=== PATIENT | male | born 1950 | race Hispanic/Latino ===

== ENCOUNTER 2019-01-14 09:57 | Emergency (ER) | payer MEDICARE, OTHER ==
[2019-01-14 10:55] LABS: BASOPHILS % (AUTO) 2.7 % (0.0-5.0); HEMATOCRIT 36.4 % (42-54); MEAN CORPUSCULAR HEMOGLOBIN 28.3 pg (27.0-33.0); MEAN CORPUSCULAR HGB CONC 33.4 g/dL (32.0-36.0); MEAN CORPUSCULAR VOLUME 84.8 fL (79-99); MONOCYTES % (AUTO) 5.7 % (3.0-13.0); NEUTROPHILS % (AUTO) 69.6 % (40.0-77.0); NUCLEATED RED BLOOD CELLS 0.1 % (0.0-0.19); PLATELET COUNT (AUTO) 132 K/uL (130-400); RED CELL DISTRIBUTION WIDTH 13.8 % (11.0-15.5)
[2019-01-14 11:02] LABS: APPEARANCE,URINE Clear (CLEAR); BILIRUBIN,URINE Negative (NEGATIVE); COLOR,URINE Yellow (YELLOW); GLUCOSE, URINE (UA) TRACE mg/dL (NEGATIVE); KETONES,URINE Negative (NEGATIVE); LEUKOCYTE ESTERASE ,URINE Negative (NEGATIVE); NITRATE,URINE Negative (NEGATIVE); OCCULT BLOOD,URINE Negative (NEGATIVE); PH,URINE 6.5 (5.0-8.0); PROTEIN,URINE Negative (NEGATIVE)
[2019-01-14 11:11] LABS: CREATININE 1.1 mg/dL (0.5-1.5); POTASSIUM 4.3 mmol/L (3.5-5.1)
[2019-01-14 11:17] LABS: BACTERIA,URINE None Seen /HPF (None Seen); RBC,URINE None Seen /HPF (0-1); SQUAMOUS EPITHELIAL CELL,UR Rare /HPF (0-2); WBC,URINE None Seen /HPF (0-1)
[2019-01-14 11:19] LABS: ALBUMIN 4.2 g/dL (3.5-5.0); TOTAL PROTEIN, SERUM 7.3 g/dL (6.0-8.3)
[2019-01-14 12:03] LABS: ERYTHROCYTE SEDIMENTATION RATE 4 MM/HR (0-20)
== END 2019-01-14 13:42 | disposition home or self-care (01) ==
LOC: EDH 09:57
DX: M51.36 Other intervertebral disc degeneration, lumbar region (principal); E11.9 Type 2 diabetes mellitus without complications
CPT/HCPCS: 36415; 72131; 80053; 81001; 85025; 85651

== ENCOUNTER → 2019-02-14 | Outpatient (CLI) | payer MEDICARE ==
[~2019-02-14] MED LIST: ASPI-555 PO; FURO40TA5 PO; GLIP5TAB11 PO; LISI10TA7 PO; METF-444 PO; METO25TA6 PO; POTA-79 PO; SIMV40TA5 PO; SITA100T12 PO; TAMS-1 PO
== END | disposition home or self-care (01) ==
LOC: SHCH 13:29
PROVIDERS: ATTEND Internal Medicine Cardiovascular Disease
DX: R07.9 Chest pain, unspecified (principal); E11.9 Type 2 diabetes mellitus without complications
CPT/HCPCS: 93306

== ENCOUNTER → 2019-02-17 | Outpatient (CLI) | payer MEDICARE ==
[~2019-02-17] VITALS: Ht 160 cm; Wt 76.7 kg
[~2019-02-17] MED LIST changes: -ASPI-555 PO; -FURO40TA5 PO; -GLIP5TAB11 PO; -LISI10TA7 PO; -METF-444 PO; -METO25TA6 PO; -POTA-79 PO; +REGADENOSON 0.4 MG/5 ML PF SYG IVP SCH; -SIMV40TA5 PO; -SITA100T12 PO; -TAMS-1 PO
== END | disposition home or self-care (01) ==
LOC: SHCH 07:50
PROVIDERS: ATTEND Internal Medicine Cardiovascular Disease
DX: I25.89 Other forms of chronic ischemic heart disease (principal)
CPT/HCPCS: 78452; 93017; 96374; A9500 ×2; J2785

== ENCOUNTER 2019-03-12 05:30 | Day surgery (SDC) | payer MEDICARE ==
[2019-03-11 11:47] VITALS: BP 151/63
[2019-03-11 11:54] LABS: BASOPHILS % (AUTO) 1.2 % (0.0-5.0); EOSINOPHILS % (AUTO) 1.4 % (0.0-8.0); HEMATOCRIT 37.9 % (42-54); LYMPHOCYTES % (AUTO) 22.8 % (21.0-51.0); MEAN CORPUSCULAR HEMOGLOBIN 28.2 pg (27.0-33.0); MEAN CORPUSCULAR HGB CONC 33.4 g/dL (32.0-36.0); MEAN CORPUSCULAR VOLUME 84.4 fL (79-99); MONOCYTES % (AUTO) 4.9 % (3.0-13.0); NEUTROPHILS % (AUTO) 69.7 % (40.0-77.0); PLATELET COUNT (AUTO) 149 K/uL (130-400); RED BLOOD CELL COUNT(AUTO) 4.49 MIL/uL (4.50-6.20); RED CELL DISTRIBUTION WIDTH 13.4 % (11.0-15.5); WHITE BLOOD COUNT (AUTO) 5.5 K/uL (4.8-10.8)
[2019-03-11 11:55] LABS: APPEARANCE,URINE Clear (CLEAR); BILIRUBIN,URINE Negative (NEGATIVE); COLOR,URINE Yellow (YELLOW); GLUCOSE, URINE (UA) >=1000 mg/dL (NEGATIVE); KETONES,URINE Negative (NEGATIVE); LEUKOCYTE ESTERASE ,URINE Negative (NEGATIVE); NITRATE,URINE Negative (NEGATIVE); OCCULT BLOOD,URINE Negative (NEGATIVE); PROTEIN,URINE Negative (NEGATIVE)
[2019-03-11 12:01] LABS: CREATININE 1.1 mg/dL (0.5-1.5); POTASSIUM 4.6 mmol/L (3.5-5.1)
[2019-03-11 12:06] LABS: INR 0.95 (0.85-1.15)
[2019-03-11 12:07] LABS: BACTERIA,URINE Rare /HPF (None Seen); MUCUS,URINE Rare LPF (None Seen); RBC,URINE None Seen /HPF (0-1); SQUAMOUS EPITHELIAL CELL,UR 0-2 /HPF (0-2); WBC,URINE None Seen /HPF (0-1)
[~2019-03-12] VITALS: Ht 162.6 cm; Wt 74.8 kg
[2019-03-12] VITALS (14 sets, daily range): BP systolic 110–140; BP diastolic 40–63
[~2019-03-12 05:30] MED LIST changes: +ASPI-555 PO; +GLIP5TAB11 PO; +LISI10TA7 PO; +METF-444 PO; -REGADENOSON 0.4 MG/5 ML PF SYG IVP SCH; +SIMV40TA5 PO; +SODIUM CHLORIDE 0.9% 500ML 500 ML IV SCH
[2019-03-12] MEDS ORDERED: SODIUM CHLORIDE 0.9% 1000ML 1,000 ML IV ONE (06:11)
[2019-03-12] MEDS ORDERED: SITA100T12 PO (06:53)
[2019-03-12] MEDS ORDERED: TAMS-1 PO (06:53)
[2019-03-12] MEDS ORDERED: IOHEXOL-350 50ML VIAL IV ONE (07:14)
[2019-03-12] MEDS ORDERED: IOHEXOL 350 MG/ML 100ML INFUS..BTL IV ONE ×2 (07:14→07:55)
[2019-03-12] MEDS ORDERED: HEPARIN SODIUM 1000UNIT/ML 10ML VIAL ONE (07:14)
[2019-03-12] MEDS ORDERED: LIDOCAINE HCL 2% 20ML ONE (07:14)
[2019-03-12] MEDS ORDERED: GLUCAGON 1MG KIT 1 MG ML IM PRN (08:30)
[2019-03-12] MEDS ORDERED: DEXTROSE 50%-WATER 50 ML DISP.SYRIN IV PRN (08:30)
--- NOTE | 2019-03-12 09:45 | NUR ---
DIET PT TOLERATED DIET WELL, ASSISTED PT.
--- NOTE | 2019-03-12 10:00 | NUR ---
METFORMIN PER DR. DAVIES, HOLD METFORMIN TODAY.
[2019-03-12] MEDS ORDERED: INSULIN HUMULIN R 100 UNIT/ML 3ML SQ SCH (11:30)
--- NOTE | 2019-03-12 13:15 | NUR ---
DIET PT TOLERATING DIET WELL. PCP ASSISTING PT.
--- NOTE | 2019-03-12 15:00 | NUR ---
TEACH DISCHARGE INSTRUCTIONS GIVEN TO AND PT. INSTRUCTIONS FOR FOLLOW UP APPT WITH DR. MOSS ALSO GIVEN TO . DEMONSTRATED TO ON HOW TO MONITOR CATH SITE FOR BLEEDING/HEMATOMA, APPLY DIRECT PRESSURE, CALL 911. VERBALIZED UNDERSTANDING.
--- NOTE | 2019-03-12 15:25 | NUR ---
REPORT REPORT RECEIVED BY KARLA HERNANDEZ. PT LYING IN BED. DOING WELL. NO PROBLEMS. SITE TO RIGHT GROIN SOFT TO TOUCH. NO BLEEDING, OOZING NOTED TO SITE.
== END 2019-03-12 17:10 | disposition home or self-care (01) ==
LOC: DAH 05:30
PROVIDERS: ATTEND Internal Medicine Cardiovascular Disease
DX: I25.118 Atherosclerotic heart disease of native coronary artery with other forms of angina pectoris (principal); E11.9 Type 2 diabetes mellitus without complications; E78.00 Pure hypercholesterolemia, unspecified; I11.9 Hypertensive heart disease without heart failure; Z82.49 Family history of ischemic heart disease and other diseases of the circulatory system; Z79.899 Other long term (current) drug therapy; Z98.890 Other specified postprocedural states; Z79.01 Long term (current) use of anticoagulants
CPT/HCPCS: 36415; 71045; 80048; 81001; 82948 ×2; 85025; 85610; 85730; 93005; 93460; A4606; C1769 ×2; C1894 ×2; J1644 ×2; J3490; J7030; Q9965 ×2; Q9967 ×3

== ENCOUNTER 2019-04-07 07:31 | Inpatient (IN) | payer MEDICARE | END 2019-04-12 17:55 | disposition home or self-care (01) | LOC: DAHIP 07:31 → 2CH 04-08 05:20 → 2CV 16:29 → 2DH 04-10 12:30 | PROC: 02RF08Z Replacement of Aortic Valve with Zooplastic Tissue, Open Approach (ICD-10-PCS; principal; 2019-04-07 13:06) | PROC: 5A1221Z Performance of Cardiac Output, Continuous (ICD-10-PCS; 2019-04-07 13:06) | DX: I35.0 Nonrheumatic aortic (valve) stenosis (principal); Q23.1 Congenital insufficiency of aortic valve; I25.10 Atherosclerotic heart disease of native coronary artery without angina pectoris; D69.6 Thrombocytopenia, unspecified ==

== ENCOUNTER 2019-04-16 11:25 | Emergency (ER) | payer MEDICARE ==
[~2019-04-16 11:25] MED LIST changes: +FURO40TA5 PO; -LISI10TA7 PO; +METO25TA6 PO; +POTA-79 PO; +SITA100T12 PO; -SODIUM CHLORIDE 0.9% 500ML 500 ML IV SCH; +TAMS-1 PO
[2019-04-16 11:50] LABS: EOSINOPHILS % (AUTO) 1.5 % (0.0-8.0); HEMATOCRIT 32.9 % (42-54); LYMPHOCYTES % (AUTO) 10.1 % (21.0-51.0); MEAN CORPUSCULAR HEMOGLOBIN 28.6 pg (27.0-33.0); MEAN CORPUSCULAR HGB CONC 33.9 g/dL (32.0-36.0); MEAN CORPUSCULAR VOLUME 84.5 fL (79-99); MONOCYTES % (AUTO) 7.8 % (3.0-13.0); NEUTROPHILS % (AUTO) 79.6 % (40.0-77.0); NUCLEATED RED BLOOD CELLS 0.1 % (0.0-0.19); PLATELET COUNT (AUTO) 141 K/uL (130-400); RED BLOOD CELL COUNT(AUTO) 3.89 MIL/uL (4.50-6.20); RED CELL DISTRIBUTION WIDTH 13.6 % (11.0-15.5); WHITE BLOOD COUNT (AUTO) 6.9 K/uL (4.8-10.8)
[2019-04-16 11:54] LABS: CREATININE 1.1 mg/dL (0.5-1.5); INR 0.97 (0.85-1.15); POTASSIUM 4.1 mmol/L (3.5-5.1); PROTHROMBIN TIME 10.2 SEC (9.6-11.6)
[2019-04-16 12:08] LABS: ALBUMIN 2.8 g/dL (3.5-5.0); BILIRUBIN,TOTAL 1.5 mg/dL (0.2-1.0); TOTAL PROTEIN, SERUM 7.1 g/dL (6.0-8.3)
[2019-04-16] MEDS ORDERED: FUROSEMIDE 10 MG/ML 4ML VIAL ONE (14:17)
[2019-04-16] MEDS ORDERED: KETOROLAC TROMETHAMINE 15MG/ML ONE (14:26)
== END 2019-04-16 15:02 | disposition home or self-care (01) ==
LOC: EDH 11:25
DX: T81.89XA Other complications of procedures, not elsewhere classified, initial encounter (principal); R07.89 Other chest pain; J90 Pleural effusion, not elsewhere classified; E11.9 Type 2 diabetes mellitus without complications; I10 Essential (primary) hypertension; Z95.2 Presence of prosthetic heart valve; Y83.8 Other surgical procedures as the cause of abnormal reaction of the patient, or of later complication, without mention of misadventure at the time of the procedure; Y92.89 Other specified places as the place of occurrence of the external cause
CPT/HCPCS: 36415; 71045; 80053; 82550; 84484; 85025; 85610; 85730; 93005; 96374; 96375; 99285; J1885; J1940

== ENCOUNTER → 2019-05-07 | Outpatient (CLI) | payer MEDICARE | END | disposition home or self-care (01) | LOC: RAH 12:30 | PROVIDERS: ATTEND Internal Medicine Cardiovascular Disease | DX: I72.4 Aneurysm of artery of lower extremity (principal) | CPT/HCPCS: 76882 ==

== ENCOUNTER → 2019-10-16 | Outpatient (CLI) | payer OTHER, MEDICARE ==
[~2019-10-16] MED LIST changes: +SIMV-46 PO; -SIMV40TA5 PO
== END | disposition home or self-care (01) ==
LOC: SHCH 15:23
PROVIDERS: ATTEND Internal Medicine Cardiovascular Disease
DX: R06.00 Dyspnea, unspecified (principal)
CPT/HCPCS: 93306; 93356

== ENCOUNTER → 2019-10-21 | Outpatient (CLI) | payer OTHER, MEDICARE ==
[~2019-10-21] VITALS: Ht 160 cm; Wt 75.7 kg
[~2019-10-21] MED LIST changes: +REGADENOSON 0.4 MG/5 ML PF SYG IVP SCH
== END | disposition home or self-care (01) ==
LOC: SHCH 08:25
PROVIDERS: ATTEND Internal Medicine Cardiovascular Disease
DX: I25.119 Atherosclerotic heart disease of native coronary artery with unspecified angina pectoris (principal)
CPT/HCPCS: 78452; 93017; 96374; A9500 ×2; J2785

== ENCOUNTER → 2019-11-17 | Outpatient (CLI) | payer OTHER, MEDICARE ==
[~2019-11-17] VITALS: Ht 161.3 cm; Wt 76.4 kg
[~2019-11-17] MED LIST changes: +NITR0.4T50 SL; -REGADENOSON 0.4 MG/5 ML PF SYG IVP SCH; +SERT50TA12 PO; +SODIUM CHLORIDE 0.9% 500ML 500 ML IV SCH
[2019-11-17 09:32] LABS: BASOPHILS % (AUTO) 1.1 % (0.0-5.0); EOSINOPHILS % (AUTO) 2.5 % (0.0-8.0); HEMATOCRIT 38.3 % (42-54); LYMPHOCYTES % (AUTO) 26.2 % (21.0-51.0); MEAN CORPUSCULAR HEMOGLOBIN 26.6 pg (27.0-33.0); MEAN CORPUSCULAR HGB CONC 31.9 g/dL (32.0-36.0); MEAN CORPUSCULAR VOLUME 83.6 fL (79-99); MONOCYTES % (AUTO) 5.4 % (3.0-13.0); NEUTROPHILS % (AUTO) 64.3 % (40.0-77.0); PLATELET COUNT (AUTO) 139 K/uL (130-400); RED BLOOD CELL COUNT(AUTO) 4.58 MIL/uL (4.50-6.20); RED CELL DISTRIBUTION WIDTH 13.7 % (11.0-15.5); WHITE BLOOD COUNT (AUTO) 4.4 K/uL (4.8-10.8)
[2019-11-17 09:34] LABS: APPEARANCE,URINE Clear (CLEAR); BILIRUBIN,URINE Negative (NEGATIVE); COLOR,URINE Yellow (YELLOW); GLUCOSE, URINE (UA) >=1000 mg/dL (NEGATIVE); KETONES,URINE Negative (NEGATIVE); LEUKOCYTE ESTERASE ,URINE Negative (NEGATIVE); NITRATE,URINE Negative (NEGATIVE); OCCULT BLOOD,URINE Negative (NEGATIVE); PROTEIN,URINE Negative (NEGATIVE)
[2019-11-17 09:37] LABS: POTASSIUM 4.8 mmol/L (3.5-5.1)
[2019-11-17 09:39] VITALS: BP 155/80
[2019-11-17 09:48] LABS: INR 0.96 (0.85-1.15); PARTIAL THROMBOPLASTIN TIME 26.7 SEC (26.3-35.5); PROTHROMBIN TIME 10.1 SEC (9.6-11.6)
[2019-11-17 09:51] LABS: BACTERIA,URINE Rare /HPF (None Seen); RBC,URINE 0-1 /HPF (0-1); SQUAMOUS EPITHELIAL CELL,UR Rare /HPF (0-2); WBC,URINE 0-1 /HPF (0-1)
--- NOTE | 2019-11-28 13:18 | NUR ---
spoke to Cass[facility] from [facility] and she advised me that new orders for the 12/03/19 procedure was faxed and we do need pt to preop again, advised scheduling.
== END | disposition home or self-care (01) ==
LOC: DAH 10:00 → EDSTATUS 12-01 08:00
PROVIDERS: ATTEND Internal Medicine Cardiovascular Disease
DX: Z01.818 Encounter for other preprocedural examination (principal); I25.10 Atherosclerotic heart disease of native coronary artery without angina pectoris; M47.814 Spondylosis without myelopathy or radiculopathy, thoracic region
CPT/HCPCS: 36415; 71045; 80048; 81001; 85025; 85610; 85730; 93005

== ENCOUNTER 2019-12-03 05:40 | Observation (INO) | payer OTHER, MEDICARE ==
[2019-12-01 10:54] LABS: BASOPHILS % (AUTO) 0.9 % (0.0-5.0); EOSINOPHILS % (AUTO) 2.7 % (0.0-8.0); HEMATOCRIT 38.6 % (42-54); LYMPHOCYTES % (AUTO) 25.7 % (21.0-51.0); MEAN CORPUSCULAR HEMOGLOBIN 26.8 pg (27.0-33.0); MEAN CORPUSCULAR HGB CONC 31.9 g/dL (32.0-36.0); MEAN CORPUSCULAR VOLUME 84.1 fL (79-99); MONOCYTES % (AUTO) 6.6 % (3.0-13.0); NEUTROPHILS % (AUTO) 63.9 % (40.0-77.0); PLATELET COUNT (AUTO) 144 K/uL (130-400); RED BLOOD CELL COUNT(AUTO) 4.59 MIL/uL (4.50-6.20); RED CELL DISTRIBUTION WIDTH 13.2 % (11.0-15.5); WHITE BLOOD COUNT (AUTO) 5.5 K/uL (4.8-10.8)
[2019-12-01 11:07] LABS: CREATININE 1.1 mg/dL (0.5-1.5); POTASSIUM 4.8 mmol/L (3.5-5.1)
[2019-12-01 11:10] LABS: APPEARANCE,URINE Clear (CLEAR); BILIRUBIN,URINE Negative (NEGATIVE); COLOR,URINE Yellow (YELLOW); GLUCOSE, URINE (UA) Negative (NEGATIVE); KETONES,URINE Trace mg/dL (NEGATIVE); LEUKOCYTE ESTERASE ,URINE Negative (NEGATIVE); NITRATE,URINE Negative (NEGATIVE); OCCULT BLOOD,URINE Negative (NEGATIVE); PROTEIN,URINE Negative (NEGATIVE)
[2019-12-01 11:10] LABS: INR 0.96 (0.85-1.15); PARTIAL THROMBOPLASTIN TIME 26.2 SEC (26.3-35.5); PROTHROMBIN TIME 10.4 SEC (9.6-11.6)
[2019-12-01 11:14] VITALS: BP 136/63
[2019-12-01 11:23] LABS: BACTERIA,URINE Rare /HPF (None Seen); RBC,URINE 0-1 /HPF (0-1); SQUAMOUS EPITHELIAL CELL,UR Rare /HPF (0-2); WBC,URINE 0-1 /HPF (0-1)
[2019-12-03] VITALS (11 sets, daily range): BP systolic 118–164; BP diastolic 58–77
[~2019-12-03] VITALS: Ht 162.6 cm; Wt 74.8 kg
[~2019-12-03 05:40] MED LIST changes: -ASPI-555 PO; +ASPI-556 PO; -FURO40TA5 PO
--- NOTE | 2019-12-03 06:10 | NUR ---
PRE OP PT ARRIVED AMBULATORY IN NO DISTRESS WITH AT SIDE. PT MADE COMFORTABLE IN BED, CALL LIGHT WITH IN REACH AND BED IN LOWEST POSITION. PT INSTRUCTED TO CALL FOR ASSISTANCE AND VOICED UNDERSTANDING. Addendum: 12/03/19 at 0800 by FARHAT REIS RN RN PT HAS SCAR TO RT CHEST WALL FROM PREVIOUS PROCEDURE SO HAS LEFT CHEST WALL LARGER THAN RIGHT
[2019-12-03] MEDS ORDERED: SODIUM CHLORIDE 0.9% 1000ML 1,000 ML IV ONE (06:48)
[2019-12-03] MEDS ORDERED: HEPARIN SODIUM 1000UNIT/ML 10ML VIAL ONE (07:09)
[2019-12-03] MEDS ORDERED: IOHEXOL-350 50ML VIAL IV ONE (07:09)
[2019-12-03] MEDS ORDERED: IOHEXOL 350 MG/ML 100ML INFUS..BTL IV ONE (07:09)
[2019-12-03] MEDS ORDERED: LIDOCAINE HCL 2% 20ML ONE (07:10)
--- NOTE | 2019-12-03 07:15 | NUR ---
DRY KILN OPERATOR PT TAKEN TO DRY KILN OPERATOR VIA BED BY SHELLI ACOSTA. PT IN NO DISTRESS.
[2019-12-03] MEDS ORDERED: ATROPINE SULFATE 0.1 MG/ML 10 ML SYG IVP ONE (07:39)
[2019-12-03] MEDS ORDERED: ASPIRIN 81MG TAB.CHEW ONE (08:04)
[2019-12-03] MEDS ORDERED: CLOPIDOGREL BISULFATE 300 MG TAB ONE (08:04)
[2019-12-03] MEDS ORDERED: ONDANSETRON HCL 4 MG/2 ML VIAL IVP PRN (08:15)
[2019-12-03] MEDS ORDERED: MORPHINE SULFATE 5 MG/ML VIAL IVP SCH (08:15)
[2019-12-03] MEDS ORDERED: NITROGLYCERIN 0.4 MG SL TAB SL SCH (08:15)
[2019-12-03] MEDS ORDERED: ONDANSETRON HCL 4 MG/2 ML VIAL IVP SCH (08:15)
[2019-12-03] MEDS ORDERED: DEXTROSE 50%-WATER 50 ML DISP.SYRIN IV PRN (08:15)
--- NOTE | 2019-12-03 08:18 | NUR ---
MD FOLLOW UP DR DAVIES IN TO TALK TO SPOUSE AND INFORMED OF STENT PLACEMENT. PT WILL BE ADMITTED FOR OBSERVATION.
--- NOTE | 2019-12-03 08:49 | NUR ---
ARRIVAL TO FLOOR PT IS AAOX3 DENIES CP DENIES SOB DENIES NV NO COMPLAINTS. ARRIVED WITH 6FR SHEATH TO RIGHT GROIN, SUTURED IN PLACE NO HEMATOMA NO OOZING NOTED. BEDREST IN PROGRESS. TELE PACK PLACED ON PATIENT. CALL LIGHT WITHIN REACH.
--- NOTE | 2019-12-03 08:50 | NUR ---
LEFT GROIN STATUS NOTED ALSO LEFT GROIN LHC ATTEMPTED SITE, DRESSING WITH TEGADERM IN PLACE, MINIMAL SPOTTING NOTED TO LEFT GROIN. BEDREST IN PROGRESS.
[2019-12-03] MEDS: CLOPIDOGREL BISULFATE 75 MG TAB PO SCH (08:59)
[2019-12-03] MEDS: METFORMIN HCL 500 MG TABLET PO SCH ×2 (09:00→20:34)
[2019-12-03] MEDS: POTASSIUM CHLORIDE 20 MEQ ERTAB PO SCH (09:00)
[2019-12-03] MEDS: TAMSULOSIN HCL 0.4 MG CAP.ER.24H PO SCH (09:05)
[2019-12-03] MEDS: METOPROLOL TARTRATE 25 MG TAB PO SCH ×2 (09:05→20:33)
[2019-12-03] MEDS: SERTRALINE HCL 50 MG TABLET PO SCH (09:05)
[2019-12-03] MEDS: INSULIN HUMULIN R 100 UNIT/ML 3ML SQ SCH ×3 (11:30→20:38)
--- NOTE | 2019-12-03 13:00 | NUR ---
DRESSING CHANGED TO LEFT GROIN AREA IS SOFT. BEDREST IN PROGRESS.
--- NOTE | 2019-12-03 13:45 | NUR ---
LINE PULL 6FR SHEATH LINE PULLED FROM RIGHT GROIN, MANUAL PRESSURE HOLD WITH DSTAT IN PLACE X30 MINS, HEMOSTASIS ACHIEVED. BEDREST CONTINUES IN PROGRESS X 8 MORE HRS AND PATIENT VERBALIZES UNDERSTANDING AND STATES HE WILL COMPLY. VS WNL THROUGHOUT. FAMILY IS AT BEDSIDE, CALL LIGHT WITHIN REACH.
[2019-12-03] MEDS ORDERED: ACETAMINOPHEN 325 MG TAB PO PRN (17:00)
--- NOTE | 2019-12-03 17:00 | NUR ---
RIGHT GROIN REMAINS WNL BEDREST IN PROGRESS
[2019-12-03] MEDS ORDERED: ASPIRIN 81 MG EC TAB PO SCH (21:00)
[2019-12-03] MEDS ORDERED: LINAGLIPTIN 5 MG TABLET PO SCH (21:00)
[2019-12-03] MEDS ORDERED: GLIPIZIDE 5 MG TABLET PO SCH (21:00)
[2019-12-03] MEDS ORDERED: SIMVASTATIN 20 MG TABLET PO SCH (21:00)
[2019-12-04 03:25] VITALS: BP 112/59
[2019-12-04 04:52] LABS: HEMATOCRIT 34.5 % (42-54); MEAN CORPUSCULAR HEMOGLOBIN 27.1 pg (27.0-33.0); MEAN CORPUSCULAR VOLUME 82.1 fL (79-99); PLATELET COUNT (AUTO) 119 K/uL (130-400); RED CELL DISTRIBUTION WIDTH 13.1 % (11.0-15.5)
[2019-12-04 05:12] LABS: POTASSIUM 3.9 mmol/L (3.5-5.1)
[2019-12-04] MEDS: INSULIN HUMULIN R 100 UNIT/ML 3ML SQ SCH ×2 (06:14→11:16)
[2019-12-04] MEDS ORDERED: GLIPIZIDE 5 MG TABLET PO SCH (07:30)
--- NOTE | 2019-12-04 07:30 | NUR ---
ASSESSMENT PT IS AAOX3 DENIES CP DENIES SOB DENIES NV NO COMPLAINTS RESTING IN BED. BREATHING PATTERN IS EVEN AND UNLABORED. NO VISIBLE SIGNS OF DISTRESS NOTED, RIGHT GROIN WNL, LEFT GROIN SOFT WELL. CALL LIGHT WITHIN REACH.
[2019-12-04] MEDS: SERTRALINE HCL 50 MG TABLET PO SCH (07:33)
[2019-12-04] MEDS: METFORMIN HCL 500 MG TABLET PO SCH (07:33)
[2019-12-04] MEDS: POTASSIUM CHLORIDE 20 MEQ ERTAB PO SCH (07:33)
[2019-12-04] MEDS: TAMSULOSIN HCL 0.4 MG CAP.ER.24H PO SCH (07:33)
[2019-12-04] MEDS: CLOPIDOGREL BISULFATE 75 MG TAB PO SCH (07:33)
[2019-12-04] MEDS: METOPROLOL TARTRATE 25 MG TAB PO SCH (07:33)
[2019-12-04 07:38] VITALS: BP 137/70
--- NOTE | 2019-12-04 11:15 | NUR ---
DISCHARGE PT REFUSED SQ INSULIN. DC INSTRUCTIONS GIVEN TO PT. PT AGREES TO TAKE MEDS ORDERED, AGREES TO FOLLOW UP WITH DR DAVIES ORDERED. ALL QUESTIONS ANSWERED, PIV REMOVED CATH TIP INTACT, TELE PACK REMOVED. DOWN VIA WC TO VEHICLE WITH NURSE AIDE.
--- NOTE | 2019-12-04 15:35 | NUR ---
7200 Patient signed PERDOMO Letter, I faxed PERDOMO Letter to [phone] and placed in chart under consent tab
== END 2019-12-04 11:30 | disposition home or self-care (01) ==
LOC: DAH 05:40 → DAHIP 05:41 → 2DH 08:59
PROVIDERS: ADMIT Internal Medicine; ATTEND Internal Medicine
DX: I25.10 Atherosclerotic heart disease of native coronary artery without angina pectoris (principal); E11.9 Type 2 diabetes mellitus without complications; E78.00 Pure hypercholesterolemia, unspecified; E78.5 Hyperlipidemia, unspecified; I10 Essential (primary) hypertension; Z95.2 Presence of prosthetic heart valve; Z79.899 Other long term (current) drug therapy; Z79.82 Long term (current) use of aspirin; Z79.84 Long term (current) use of oral hypoglycemic drugs
CPT/HCPCS: 36415 ×3; 80048 ×2; 80061; 81001; 82948 ×6; 85025; 85027; 85610; 85730 ×3; 93005; 93454; A4215; A4216; A4221; A4222; A4223 ×2; A4606; A4663; C1769; C1874; C1887; C1894; C9600; G0378 ×20; J1644 ×3; J3490; J7030; Q9965; Q9967 ×2; J0461

== ENCOUNTER → 2020-06-28 | Outpatient (CLI) | payer OTHER, MEDICARE ==
[~2020-06-28] MED LIST changes: -SODIUM CHLORIDE 0.9% 500ML 500 ML IV SCH
== END | disposition home or self-care (01) ==
LOC: SHCH 08:08
PROVIDERS: ATTEND Internal Medicine Cardiovascular Disease
DX: I35.0 Nonrheumatic aortic (valve) stenosis (principal); R06.00 Dyspnea, unspecified
CPT/HCPCS: 93306; 93356

== ENCOUNTER 2024-07-15 13:39 | Emergency (ER) | payer MEDICARE, OTHER ==
[~2024-07-15] VITALS: Ht 160 cm; Wt 61.2 kg
--- NOTE | 2024-07-15 13:47 | ERN ---
ED Note History of Present Illness Stated Complaint: WEAKNESS Chief Complaint: Fatigue Time Seen by MD: 13:43 Dictation: PATIENT IS A 74-YEAR-OLD MALE COMING IN WITH HIS WITH COMPLAINTS OF GENERALIZED BODY WEAKNESS FOR TWO WEEKS. NO FEVER NO CHILLS NO CHEST PAIN NO BA CK PAIN. STATES HE FELL SEVERAL DAYS AGO AND WENT AND SAW HIS DOCTOR TODAY WHO SENT HIM OVER TO [facility] FOR X-RAYS. THE X-RAYS WERE DONE OF HIS NECK AND THEN PATIENT DECIDED TO COME TO THE EMERGENCY ROOM FOR FURTHER EVALUATION AND TREATMENT. NIH IS 0 NO FEVER Allergies: Coded Allergies: No Known Drug Allergies (Unverified Allergy, Unknown, 02/14/19) Home Meds Active Scripts Levofloxacin (Levofloxacin) 500 Mg Tablet, 500 MG PO DAILY for 7 Days, #7 TAB Prov:KEVIN CABA 03/05/21 Reported Medications Semaglutide (Ozempic) 1 Mg/0.75 Ml Pen.injctr, 0.5 MG SQ QWEEK 03/04/21 Turmeric Root Extract (Turmeric) 500 Mg Capsule, 500 MG PO DAILY, CAP 03/04/21 Tizanidine HCl (Tizanidine HCl) 2 Mg Capsule, 2 MG PO HS, CAP 03/04/21 Gabapentin (Neurontin) 300 Mg Capsule, 300 MG PO BID, CAP 03/04/21 Clopidogrel Bisulfate (Plavix) 75 Mg Tablet, 75 MG PO DAILY, TAB 03/04/21 Donepezil HCl (Donepezil HCl) 10 Mg Tab.rapdis, 10 MG PO HS, TAB 03/04/21 Nitroglycerin (Nitroglycerin) 0.4 Mg Tab.subl, 0.4 MG SL AD, TAB.SL 12/01/19 Sertraline HCl (Sertraline HCl) 50 Mg Tablet, 100 MG PO HS, TAB 11/17/19 Potassium Chloride (Potassium Chloride) 20 Meq Tablet.er, 20 MEQ PO DAILY, TAB 04/12/19 Metoprolol Tartrate (Metoprolol Tartrate) 25 Mg Tablet, 12.5 MG PO BID, TAB 04/12/19 Aspirin (Aspir 81) 81 Mg Tablet.dr, 81 MG PO HS, TAB 03/11/19 Simvastatin (Simvastatin) 40 Mg Tablet, 40 MG PO HS, TAB 03/11/19 Metformin HCl (Metformin HCl) 500 Mg Tablet, 1000 MG PO BID, TAB 03/11/19 Past Medical History Past Medical History: Dementia, Diabetes-Type II, Hypertension Additional Past Medical Hx: DEPRESSION, ARTHRITIS Surgical History: Other Surgical History Other: CARDIAC STENTS; PROSTATE SX PSYCH History: no pertinent psych hx Social History: Negative, Lives with family RN Note Reviewed/Agreed w/PFSH: Yes Review of System Dictation CONSTITUTIONAL: NEGATIVE EXCEPT FOR HPI GENERALIZED BODY WEAKNESS HEAD/FACE: NEGATIVE EXCEPT FOR HPI EENT: NEGATIVE EXCEPT FOR HPI RESPIRATORY: NEGATIVE EXCEPT FOR HPI GASTROINTESTINAL/ABDOMINAL: NEGATIVE EXCEPT FOR HPI GENITOURINARY: NEGATIVE EXCEPT FOR HPI MUSCULOSKELETAL: NEGATIVE EXCEPT FOR HPI RIGHT POSTERIOR NECK PAIN. X-RAYS DONE AT [facility] PRIOR TO ARRIVAL INTEGUMENTARY: NEGATIVE EXCEPT FOR HPI NEUROLOGICAL/PSYCH: NEGATIVE EXCEPT FOR HPI HEMATOLOGIC/LYMPHATIC: NEGATIVE EXCEPT FOR HPI ALL SYSTEMS NEGATIVE, EXCEPT NOTED ABOVE. 13 POINT REVIEW OF SYSTEMS ASSESSED AND ALL NEGATIVE EXCEPT FOR ABOVE. Initial Vital Sign VS Vital Signs Date Time Temp Pulse Resp B/P (MAP) Pulse Ox O2 Delivery O2 Flow Rate FiO2 07/15/24 13:43 97.5 74 18 134/58 99 07/15/24 14:20 Room Air* 0 21 Physical Exam Dictation VITAL SIGNS REVIEWED GENERAL APPEARANCE: ALERT, ORIENTED X 3, MY ACUTE DISTRESS, WELL DEVELOPED, NOURISHED. HEAD AND FACE: NON-TRAUMATIC. EYES: PERRL, PINK CONJUNCTIVAS, EYELID NO TRAUMA, ANTERIOR CHAMBER WITH ARCUS SENILIS. EARS: PINNAS INTACT AND NO SIGNS OF TRAUMA OR ERYTHEMA EAR CANALS CLEAR AND NO DISCHARGE TM NO ERYTHEMA NOSE: NO DISCHARGE, NO BLEEDING. OROPHARYNX: MOUTH NORMAL, TONGUE PINK, PHARYNX CLEAR,NO ERYTHEMA, TONSILS NO EXUDATES, NO ABSCESSES NOTED, MUCOUS MEMBRANE MOIST NECK: SUPPLE, NON-TENDER, NO THYROMEGALY, NO MASSES, NO JVD, NO BRUITS BREAST:DEFERRED CHEST:NO TENDERNESS, NO CREPITUS, NO PARADOXICAL MOVEMENT, NO RETRACTIONS LUNGS:CLEAR, WELL-VENTILATED, SYMMETRIC, NO RALES, NO WHEEZING, NO RHONCHI, NO STRIDOR, GOOD BREATH SOUNDS BILATERALLY HEART: REGULAR RATE, REGULAR RHYTHM, NO MURMUR, NO GALLOPS VASCULAR: NO PERIPHERAL EDEMA, ABDOMEN: SOFT, POSITIVE BOWEL SOUNDS, NONDISTENDED, NO GUARDING, NONTENDER, NO REBOUND, NO MASSES NO HEPATOMEGALY, NO SPLENOMEGALY, NO POZO'S SIGN, NO HERNIAS. RECTAL: DEFERRED GENITAL: DEFERRED NEUROLOGICAL: NORMAL , FULL RANGE OF MOTION, BACK NONTENDER, FULL RANGE OF MOTION, DIFFUSE POSTERIOR CERVICAL TENDERNESS NO MIDLINE PAIN OR STEP-OFFS. EXTREMITIES: NONTENDER, FULL RANGE OF MOTION SKIN: COLOR PINK, DRY, NO TURGOR, NO RASH, NO LACERATIONS, NO ABRASIONS, NO CONTUSIONS. LYMPHATIC: DEFERRED Results (Laboratory/Radiology) Laboratory/Radiology Laboratory Tests Test 07/15/24 14:05 07/15/24 14:10 Urine Color YELLOW (YELLOW) Urine Appearance CLEAR (CLEAR) Urine pH 7.0 (5.0-8.0) Urine Specific [place] 1.022 (1.001-1.031) Urine Protein 10 mg/dL (NEGATIVE) H Urine Glucose (UA) 150 mg/dL (NEGATIVE) H Urine Ketones NEGATIVE mg/dL (NEGATIVE) Urine Occult Blood NEGATIVE (NEGATIVE) Urine Nitrate NEGATIVE (NEGATIVE) Urine Bilirubin NEGATIVE mg/dL (NEGATIVE) Urine Urobilinogen >=8.0 mg/dL (0.2-1.0) H Urine Leukocyte Esterase NEGATIVE Yonas/uL Urine RBC 2-5 /HPF (0-1) H Urine WBC 0-1 /HPF (0-1) Urine Squamous Epithelial Cells RARE /HPF (0-2) Urine Bacteria None /HPF (None Seen) Urine Hyaline Casts 0-1 /LPF (0-1 /LPF) Urine Yeast RARE /HPF (None Seen) White Blood Count 4.0 K/uL (4.8-10.8) L Red Blood Count 4.72 MIL/uL (4.50-6.20) Hemoglobin 13.3 g/dL (14.0-18.0) L Hematocrit 38.8 % (42-54) L Mean Corpuscular Volume 82.2 fL (79-99) Mean Corpuscular Hemoglobin 28.2 pg (27.0-33.0) Mean Corpuscular Hemoglobin Concent 34.3 g/dL (32.0-36.0) Red Cell Distribution Width 12.1 % (11.0-15.5) Platelet Count 136 K/uL (130-400) Mean Platelet Volume 12.2 fL (7.5-10.5) H Immature Granulocyte % (Auto) 0.5 % (0-1) Neutrophils (%) (Auto) 68.8 % (40.0-77.0) Lymphocytes (%) (Auto) 19.3 % (21.0-51.0) L Monocytes (%) (Auto) 7.8 % (3.0-13.0) Eosinophils (%) (Auto) 2.8 % (0.0-8.0) Basophils (%) (Auto) 0.8 % (0.0-5.0) Neutrophils # (Auto) 2.8 K/uL (1.8-7.7) Lymphocytes # (Auto) 0.8 K/uL (1.0-4.8) L Monocytes # (Auto) 0.3 K/uL (0.1-1.0) Eosinophils # (Auto) 0.11 K/uL (0.00-0.70) Basophils # (Auto) 0.03 K/uL (0.00-0.20) Absolute Immature Granulocyte (auto 0.02 K/uL (0-1) Nucleated Red Blood Cells 0.0 % (0.0-0.19) Sodium Level 131 mmol/L (136-145) L Potassium Level 4.6 mmol/L (3.5-5.1) Chloride Level 96 mmol/L (101-111) L Carbon Dioxide Level 31 mmol/L (21-32) Blood Urea Nitrogen 15 mg/dL (7-18) Creatinine 1.0 mg/dL (0.5-1.3) Glomerular Filtration Rate Calc 79 mL/min (>90) Random Glucose 257 mg/dL (70-105) H Total Calcium 9.2 mg/dL (8.5-10.1) Troponin I High Sensitivity 6 ng/L (4-75) Labs Reviewed?: Yes EKG Comment: EKG SINUS RHYTHM/HEART RATE 71/VA INTERVAL 246 MILLISECOND/LEFT FASCICULAR BLOCK ED Course ED Course Orders Procedure Category Date Status Time Cbc With Differential LAB 07/15/24 Complete 13:45 Troponin I High LAB 07/15/24 Complete Sensitivity 13:45 Urinalysis Profile LAB 07/15/24 Complete 13:45 12 Lead Ekg Tracing- EKG 07/15/24 Resulted Technical 13:45 Basic Metabolic Panel LAB 07/15/24 Complete 13:45 Acetaminophen 500mg PHA 07/15/24 Complete Tab (Tylenol 500mg T 14:00 0.9%Nacl 1000ml (Ns PHA 07/15/24 Complete 1000ml) 15:00 Current Medications Medications (Trade) Dose Ordered Sig/Jerry Route PRN Reason Start Time Stop Time Status Last Admin Dose Admin Acetaminophen (TYLenol 500MG TAB) 1,000 mg ONCE ONCE PO 07/15/24 14:00 07/15/24 14:01 DC 07/15/24 14:35 Sodium Chloride 1,000 ml @ 0 mls/hr ONCE ONCE IV 07/15/24 15:00 07/15/24 15:01 DC 07/15/24 15:13 Vital Signs Date Time Temp Pulse Resp B/P (MAP) Pulse Ox O2 Delivery O2 Flow Rate FiO2 07/15/24 16:56 97.5 59 18 156/76 98 Room Air* 0 21 07/15/24 14:35 97.5 07/15/24 14:20 97.5 66 18 167/66 97 Room Air* 0 21 07/15/24 13:43 97.5 74 18 134/58 99 ONE [place]OUSAND [place]IX HUNDRED PATIENT HAD ELECTROLYTES REPLACED AND DEHYDRATION ADDRESSED WITH FLUIDS. DISCHARGED HOME WITH DIAGNOSIS OF WEAKNESS/HYPONATREMIA DEHYDRATION AND UNCONTROLLED DIABETES. TOLD TO FOLLOW UP WITH HIS PRIMARY CARE DOCTOR IN 1-2 DAYS. HEART Score Response (Comments) Value EKG: Repolarization changes 1 Age: > 65yrs (+2) 2 Risk Factors: 1-2 risk factors (+1) 1 Initial Troponin: Normal limit (0) 0 Total 4 Medical Decision Making MDM MDM: DIFFERENTIAL DIAGNOSIS: ACS/AMI/DEHYDRATION/ELECTROLYTE IMBALANCE/WEAKNESS/UNCONTROLLED DIABETES RATIONALE: TESTS CONSIDERED AND ORDERED SECONDARY TO SHARED DECISION MAKING IN CLUDE: EKG/LABS PREVIOUS OUTSIDE RECORDS REVIEWED: OLD ER VISITS. REVIEWED RISK OF COMPLICATION AND/OR MORBIDITY OR MORTALITY OF PATIENT MANAGEMENT: NONE MEDICATIONS-PER MEDICATION RECONCILIATION NEED FOR HOSPITALIZATION: PATIENT DOES NOT MEET CRITERIA FOR HOSPITALIZATION. NO NEED FOR EMERGENCY MAJOR/MINOR SURGERY: NO THERE ARE NO SOCIAL CONCERNS WITH THIS PATIENT. PRESCRIPTION DRUG MANAGEMENT NONE PRESCRIPTIONS WILL INCLUDE SYMPTOMATIC CARE PATIENT'S PRIOR EXTERNAL MEDICAL RECORDS FROM OTHER ER VISITS WERE REVIEWED BY ME INDICATED. PRIOR TESTING AND RESULTS FROM PREVIOUS VISITS WERE REVIEWED. PRIOR TESTS WERE TAKEN INTO ACCOUNT WITH MEDICAL DECISION MAKING AND RESOURCE UTILIZATION, INDEPENDENT HISTORIAN/HISTORIANS WERE USED TO OBTAIN COMPLETE MED [facility] HISTORY. I INDEPENDENTLY INTERPRETED THE TEST THAT WERE PERFORMED, RESULTS WERE REVIEWED BY ME AND CONSIDERED FINDINGS ON RADIOLOGY IF ORDERED. MEDICAL MANAGEMENT AND EXAMINATION INTERPRETATION DISCUSSIONS WERE HAD BY ME WITH OTHER QUALIFIED HEALTHCARE PROFESSIONALS INDICATED FOR THE PATIENT'S CARE. DX & DISP Disposition: Discharge Departure Impression: Primary Impression: Dehydration Additional Impressions: Hyponatremia, Uncontrolled diabetes mellitus, Weakness Condition: Stable Additional Instructions: FOLLOW-UP WITH PRIMARY CARE PROVIDER IN 1 TO 2 DAYS. TAKE MEDICATIONS DIRECTED HERE IN THE EMERGENCY ROOM. OKAY TO CONTINUE HOME MEDICATIONS UNLESS OTHERWISE DISCUSSED DURING YOUR VISIT IN THE EMERGENCY ROOM TODAY. RETURN TO YOUR NEAREST EMERGENCY ROOM IF SYMPTOMS WORSEN OR IF THERE IS NO IMPROVEMENT. CALL 911 IF YOU NEED IMMEDIATE ASSISTANCE. TAKE TYLENOL OR MOTRIN [id number] NEEDED AND IF NO CONTRAINDICATIONS ARE PRESENT. INCREASE ORAL HYDRATION. A WOUND CULTURE OR URINE CULTURE WAS ORDERED HERE IN THE EMERGENCY ROOM DEPARTMENT PLEASE FOLLOW-UP WITH PRIMARY CARE PROVIDER AND ADVISE THEM TO GET REPEAT PORTS FROM OUR FACILITY. IF YOU HAD ANY KJ WRAP/SPLINTS THAT WERE APPLIED HERE, PLEASE DO NOT REMOVE THEM UNTIL YOU SEE YOUR PRIMARY CARE OR SPECIALTY. SIPS OF GATORADE OR POWERADE EVERY 20 MINUTES WHILE AWAKE FOR THE NEXT12 HOURS. FOLLOW UP WITH YOUR PRIMARY CARE DOCTOR IN 1-2 DAYS. Referrals: LA RUIZ MD (PCP) Time of Disposition: 16:02 66-YEAR-OLD FEMALE COMING IN TODAY VIA EMS WITH COMPLAINTS OF GENERALIZED BODY WEAKNESS FOR FOUR DAYS. PER EMS AND FAMILY, SHE HAS HAD NO FEVER NO CHILLS NO NAUSEA VOMITING ATTESTATION BY PHYSICIAN I PERFORMED THE SUBSTANTIVE PORTION OF THE VISIT. I HAVE REVIEWED AND PERSONALLY MADE AND APPROVED THE MANAGEMENT PLAN THAT IS DOCUMENTED IN THE NOTE BY MYSELF FOR THE A PP. I ACKNOWLEDGED FOR RESPONSIBILITY FOR THE PATIENT'S MANAGEMENT PLAN. I have reviewed the case, and I agree with, Diagnosis and Plan LAWRENCE HOBSON NP Jul 15, 2024 13:47 KIRAN DELANEY MD Jul 18, 2024 04:33
--- NOTE | 2024-07-15 13:59 | EKG ---
[facility] Test Date: 2024-07-15 Test Time: 13:54:51 Pat Name: ABRIL EISENBERG Department: ED Room: Gender: M Manager [employer]: [id number] : 1950 Requested By: LAWRENCE HOBSON Order Number: [id number] Reading MD: Manuel Moe Measurements Intervals [place] Rate: 71 P: -22 NE: 246 QRS: -53 QRSD: 82 T: 69 QT: 408 QTc: 442 Interpretive Statements Sinus rhythm Prolonged NE interval Left anterior fascicular block Anteroseptal infarct, old Compared to ECG 12/01/2019 10:31:29 Left anterior fascicular block now present Myocardial infarct finding now present Electronically Signed On 07-16-2024 12:09:31 CDT by Manuel Moe Please click the below link to view image of tracing.
[2024-07-15 14:27] LABS: BASOPHILS # (AUTO) 0.03 K/uL (0.00-0.20); BASOPHILS % (AUTO) 0.8 % (0.0-5.0); EOSINOPHILS # (AUTO) 0.11 K/uL (0.00-0.70); EOSINOPHILS % (AUTO) 2.8 % (0.0-8.0); HEMATOCRIT 38.8 % (42-54); IMMATURE GRANULOCYTE ABSOLUTE 0.02 K/uL (0-1); LYMPHOCYTES # (AUTO) 0.8 K/uL (1.0-4.8); LYMPHOCYTES % (AUTO) 19.3 % (21.0-51.0); MEAN CORPUSCULAR HEMOGLOBIN 28.2 pg (27.0-33.0); MEAN CORPUSCULAR HGB CONC 34.3 g/dL (32.0-36.0); MEAN CORPUSCULAR VOLUME 82.2 fL (79-99); MONOCYTES # (AUTO) 0.3 K/uL (0.1-1.0); MONOCYTES % (AUTO) 7.8 % (3.0-13.0); NEUTROPHILS # (AUTO) 2.8 K/uL (1.8-7.7); NEUTROPHILS % (AUTO) 68.8 % (40.0-77.0); PLATELET COUNT (AUTO) 136 K/uL (130-400); RED BLOOD CELL COUNT(AUTO) 4.72 MIL/uL (4.50-6.20); RED CELL DISTRIBUTION WIDTH 12.1 % (11.0-15.5)
[2024-07-15] MEDS: acetaMINOPHEN 500 MG TABLET PO ONE (14:35)
[2024-07-15 14:41] LABS: POTASSIUM 4.6 mmol/L (3.5-5.1)
[2024-07-15 14:48] LABS: APPEARANCE,URINE CLEAR (CLEAR); BILIRUBIN,URINE NEGATIVE (NEGATIVE); COLOR,URINE YELLOW (YELLOW); GLUCOSE, URINE (UA) 150 mg/dL (NEGATIVE); KETONES,URINE NEGATIVE (NEGATIVE); LEUKOCYTE ESTERASE ,URINE NEGATIVE Leu/uL (NEGATIVE); NITRATE,URINE NEGATIVE (NEGATIVE); OCCULT BLOOD,URINE NEGATIVE (NEGATIVE); PROTEIN,URINE 10 mg/dL (NEGATIVE); UROBILINOGEN,URINE >=8.0 mg/dL (0.2-1.0)
[2024-07-15 14:51] LABS: ADD UA MICROSCOPIC YES
[2024-07-15 14:59] LABS: HYALINE CASTS, URINE 0-1 /LPF (0-1 /LPF); MUCUS,URINE RARE LPF (None Seen); SQUAMOUS EPITHELIAL CELL,UR RARE /HPF (0-2); WBC,URINE 0-1 /HPF (0-1); YEAST,URINE BUDDING RARE /HPF (None Seen)
[2024-07-15] MEDS: 0.9%NACL 1000ML 1,000 ML IV ONE (15:13)
[2024-07-15 16:07] VITALS: TEMP 97.5
[2024-07-15 16:56] VITALS: BP 156/76; PULSE 59; RESP 18; TEMP 97.5; O2SAT 98
[2024-07-20] MEDS ORDERED: SERT-440 PO (15:03)
[2024-07-20] MEDS ORDERED: DONE10TA43 PO (15:03)
[2024-07-20] MEDS ORDERED: POTA-202 PO (15:03)
[2024-07-20] MEDS ORDERED: ASPI-1443 PO (15:03)
[2024-07-20] MEDS ORDERED: METF-446 PO (15:03)
== END 2024-07-15 16:51 | disposition home or self-care (01) ==
LOC: EDH 13:39
DX: E86.0 Dehydration (principal); E87.1 Hypo-osmolality and hyponatremia; E11.65 Type 2 diabetes mellitus with hyperglycemia; R53.1 Weakness; F03.93 Unspecified dementia, unspecified severity, with mood disturbance; I10 Essential (primary) hypertension; M19.90 Unspecified osteoarthritis, unspecified site; Z79.02 Long term (current) use of antithrombotics/antiplatelets; Z79.82 Long term (current) use of aspirin; Z79.84 Long term (current) use of oral hypoglycemic drugs; Z79.85 Long-term (current) use of injectable non-insulin antidiabetic drugs; Z79.899 Other long term (current) drug therapy; Z95.5 Presence of coronary angioplasty implant and graft
CPT/HCPCS: 99285; 96360; 84484; 80048; 85025; 81001; 36415; 72040; 72100; 71100 ×2; 72220; 93005; J7030; 99284

== ENCOUNTER → 2024-07-15 | Outpatient (CLI) | payer OTHER ==
[~2024-07-15] MED LIST changes: +CLOP-31 PO; +DONE-53 PO; +GABA300C PO; -GLIP5TAB11 PO; +LEVO-70 PO; +POTA-364 PO; -POTA-79 PO; +SEMA1PEN3 SQ; +SERT-439 PO; -SERT50TA12 PO; -SITA100T12 PO; -TAMS-1 PO; +TIZA2CAP9 PO; +TURM500C9 PO
== END | disposition home or self-care (01) ==
LOC: RAH 09:36
PROVIDERS: ATTEND Internal Medicine
DX: M47.817 Spondylosis without myelopathy or radiculopathy, lumbosacral region (principal); M47.812 Spondylosis without myelopathy or radiculopathy, cervical region; M48.07 Spinal stenosis, lumbosacral region; R07.81 Pleurodynia; M54.50 Low back pain, unspecified
CPT/HCPCS: 71100; 72040; 72100; 72220

== ENCOUNTER 2025-04-08 11:13 | Emergency (ER) | payer OTHER, MEDICARE ==
[~2025-04-08] VITALS: Ht 160 cm; Wt 66.3 kg
[~2025-04-08 11:13] MED LIST changes: +ASPI-1443 PO; -ASPI-556 PO; -CLOP-31 PO; -DONE-53 PO; +DONE10TA43 PO; -GABA300C PO; -LEVO-70 PO; -METF-444 PO; +METF-446 PO; -NITR0.4T50 SL; +POTA-202 PO; -POTA-364 PO; -SEMA1PEN3 SQ; -SERT-439 PO; +SERT-440 PO; -TIZA2CAP9 PO; -TURM500C9 PO
--- NOTE | 2025-04-08 11:25 | ERN ---
ED Note History of Present Illness Stated Complaint: LALACERATION Chief Complaint: Laceration/Avulsion Time Seen by MD: 11:19 Dictation: PATIENT IS A 75-YEAR-OLD DIABETIC MALE COMING IN TODAY WITH A LACERATION TO THE WEB OF THE RIGHT HAND BETWEEN THE 3RD AND 4TH FINGERS. HE STATES HE WAS OUTSIDE PULLING WEEDS WHEN HE THINKS HE CUT IT MAYBE ON SOME WIRE HE IS NOT SURE. LAST TETANUS SHOT IS UNKNOWN. THERE WAS NO ACTIVE BLEEDING. Allergies: Coded Allergies: No Known Drug Allergies (Unverified Allergy, Unknown, 02/14/19) Home Meds Active Scripts Mupirocin (Bactroban 2% Oint) 2 % Oint, 1 APPL TP TID for 5 Days, #15 GM 0 Refills apply to affected area(s) Prov:LAWRENCE HOBSON NP 04/08/25 Cephalexin (Cephalexin) 500 Mg Tablet, 1 TAB PO TID for 10 Days, #30 TAB 0 Refills Prov:LAWRENCE HOBSON NP 04/08/25 Reported Medications Potassium Chloride (Potassium Chloride) 20 Meq Tab.er.prt, 1 TAB PO DAILY for 30 Days, #30 TAB 0 Refills 07/20/24 Sertraline HCl (Sertraline HCl) 100 Mg Tablet, 100 MG PO HS, TAB 07/20/24 Metoprolol Tartrate (Metoprolol Tartrate) 25 Mg Tablet, 12.5 MG PO BID, TAB 07/20/24 Aspirin (Aspirin EC) 81 Mg Tablet.dr, 1 TAB PO DAILY for 30 Days, #30 TAB 0 Refills 07/20/24 Donepezil HCl (Donepezil HCl) 10 Mg Tablet, 1 TAB PO DAILY for 30 Days, #30 TAB 0 Refills 07/20/24 Simvastatin (Simvastatin) 40 Mg Tablet, 1 TAB PO HS for 30 Days, #30 TAB 0 Refills 07/20/24 Metformin HCl (Metformin HCl) 1,000 Mg Tablet, 1000 MG PO BID, TAB 07/20/24 Past Medical History Past Medical History: Dementia, Diabetes-Type II, High Cholesterol, Heart Disease, Hypertension Additional Past Medical Hx: ALZHIMER'S Surgical History: CABG, Other Surgical History Other: prostate, neck pain Social History: Negative, Lives with family RN Note Reviewed/Agreed w/PFSH: Yes Review of System Dictation CONSTITUTIONAL: NEGATIVE EXCEPT FOR HPI HEAD/FACE: NEGATIVE EXCEPT FOR HPI EENT: NEGATIVE EXCEPT FOR HPI RESPIRATORY: NEGATIVE EXCEPT FOR HPI GASTROINTESTINAL/ABDOMINAL: NEGATIVE EXCEPT FOR HPI GENITOURINARY: NEGATIVE EXCEPT FOR HPI MUSCULOSKELETAL: NEGATIVE EXCEPT FOR HPI INTEGUMENTARY: NEGATIVE EXCEPT FOR HPI LACERATION BETWEEN RIGHT 3RD AND 4TH FINGERS WEB NEUROLOGICAL/PSYCH: NEGATIVE EXCEPT FOR HPI HEMATOLOGIC/LYMPHATIC: NEGATIVE EXCEPT FOR HPI ALL SYSTEMS NEGATIVE, EXCEPT NOTED ABOVE. 13 POINT REVIEW OF SYSTEMS ASSESSED AND ALL NEGATIVE EXCEPT FOR ABOVE. Initial Vital Sign VS Vital Signs Date Time Temp Pulse Resp B/P (MAP) Pulse Ox O2 Delivery O2 Flow Rate FiO2 04/08/25 11:17 99.5 64 16 147/48 100 Room Air 0 04/08/25 11:20 21 Physical Exam Dictation VITAL SIGNS REVIEWED GENERAL APPEARANCE: ALERT, ORIENTED X 3, MILD ACUTE DISTRESS, WELL DEVELOPED, NOURISHED. HEAD AND FACE: NON-TRAUMATIC. EYES: PERRL, PINK CONJUNCTIVAS, EYELID NO TRAUMA, ANTERIOR CHAMBER WITH ARCUS SENILIS. EARS: PINNAS INTACT AND NO SIGNS OF TRAUMA OR ERYTHEMA EAR CANALS CLEAR AND NO DISCHARGE TM NO ERYTHEMA NOSE: NO DISCHARGE, NO BLEEDING. OROPHARYNX: MOUTH NORMAL, TONGUE PINK, PHARYNX CLEAR,NO ERYTHEMA, TONSILS NO EXUDATES, NO ABSCESSES NOTED, MUCOUS MEMBRANE MOIST NECK: SUPPLE, NON-TENDER, NO THYROMEGALY, NO MASSES, NO JVD, NO BRUITS BREAST:DEFERRED CHEST:NO TENDERNESS, NO CREPITUS, NO PARADOXICAL MOVEMENT, NO RETRACTIONS LUNGS:CLEAR, WELL-VENTILATED, SYMMETRIC, NO RALES, NO WHEEZING, NO RHONCHI, NO STRIDOR, GOOD BREATH SOUNDS BILATERALLY HEART: REGULAR RATE, REGULAR RHYTHM, NO MURMUR, NO GALLOPS VASCULAR: NO PERIPHERAL EDEMA, ABDOMEN: SOFT, POSITIVE BOWEL SOUNDS, NONDISTENDED, NO GUARDING, NONTENDER, NO REBOUND, NO MASSES NO HEPATOMEGALY, NO SPLENOMEGALY, NO POZO'S SIGN, NO HERNIAS. RECTAL: DEFERRED GENITAL: DEFERRED NEUROLOGICAL: NORMAL SPEECH, MOTOR FUNCTION INTACT, SENSORY FUNCTION INTACT MUSCULOSKELETAL: NECK NONTENDER, FULL RANGE OF MOTION, BACK NONTENDER, FULL RANGE OF MOTION, EXTREMITIES: FULL RANGE OF MOTION TO FINGERS RIGHT HAND. LACERATION BETWEEN THIRD AND 4TH FINGERS IN THE WEB SKIN: 2 CM LACERATION BETWEEN WEB OF RIGHT 3RD AND 4TH FINGERS. NEUROVASCULAR CMS INTACT NO ACTIVE BLEEDING LYMPHATIC: DEFERRED Results (Laboratory/Radiology) Laboratory/Radiology RIGHT HAND X-RAY NEGATIVE FOR RADIOPAQUE FOREIGN BODY Labs Reviewed?: Yes ED Course ED Course Orders Procedure Category Date Status Time Tetanus,Diphtheria PHA 04/08/25 Complete Tox [Adult] (Diphther 11:30 Ibuprofen 600 Mg PHA 04/08/25 Complete Tablet (Motrin) 11:30 Cephalexin 500 Mg PHA 04/08/25 Complete Capsule (Keflex 500 Mg 11:30 Lidocaine Hcl 1% 20ml PHA 04/08/25 Complete Vial (Lidocaine Hc 11:30 Neomy PHA 04/08/25 Complete Sulf/Bacitra/Polymyxin 11:30 Hand 3+Vws Rt RAD 04/08/25 Resulted 11:21 Current Medications Medications (Trade) Dose Ordered Sig/Jerry Route PRN Reason Start Time Stop Time Status Last Admin Dose Admin Cephalexin (Keflex 500 MG CAPS) 1,000 mg ONCE ONCE PO 04/08/25 11:30 04/08/25 11:31 DC 04/08/25 13:28 Ibuprofen (moTRIN) 600 mg ONCE ONCE PO 04/08/25 11:30 04/08/25 11:31 DC 04/08/25 13:29 Lidocaine HCl (Lidocaine HCl 1% 20ml Vial) 10 ml ONCE ONCE INJ 04/08/25 11:30 04/08/25 11:31 DC Neomycin/ Polymyxin/ Bacitracin (Triple Antibiotic Ointment) 1 appl ONCE ONCE TP 04/08/25 11:30 04/08/25 11:31 DC 04/08/25 13:28 Tetanus/ Diphtheria Toxoids Adsorbed (DiphthERIA-teTANUS TOXOID [ADULT]/ DECAVAC) 0.5 ml ONCE ONCE IM 04/08/25 11:30 04/08/25 11:31 DC 04/08/25 13:31 Vital Signs Date Time Temp Pulse Resp B/P (MAP) Pulse Ox O2 Delivery O2 Flow Rate FiO2 04/08/25 13:31 98.4 66 16 141/52 100 Room Air* 0 04/08/25 11:20 99.5 65 16 147/48 100 Room Air* 0 04/08/25 11:17 99.5 64 16 147/48 100 Room Air 0 Medical Decision Making MDM MEDICAL DECISION-MAKING BASED ON X-RAY TO RULE OUT FOREIGN BODY TETANUS WAS UPDATED PROPHYLACTIC ANTIBIOTICS GIVEN DUE TO PATIENT BEING DIABETIC RIGHT HAND LACERATION CLOSED BETWEEN 3RD AND 4TH FINGERS PATIENT GIVEN WOUND CARE INSTRUCTIONS Procedure Procedure Dictation: 1315/PROCEDURE EXPLAINED TO PATIENT HE AGREED 2 CM LACERATION BETWEEN WEB OF RIGHT 3RD AND 4TH FINGERS AREA CLEANSED WITH WOUND CLEANSER 3 ML 1% LIDOCAINE PLAIN FOR LOCAL ANESTHETIC NO FOREIGN BODY NOTED LACERATION CLOSED WITH THREE FIVE 0 PROLENE SIMPLE INTERRUPTED SINGLE-LAYER CLOSURE PATIENT TOLERATED WELL DX & DISP Disposition: Discharge Departure Impression: Primary Impression: Laceration of right hand Condition: Stable Scripts Mupirocin (Bactroban 2% Oint) 2 % Oint 1 APPL TP TID for 5 Days, #15 GM 0 Refills apply to affected area(s) Prov: LAWRENCE HOBSON NP 04/08/25 Cephalexin (Cephalexin) 500 Mg Tablet 1 TAB PO TID for 10 Days, #30 TAB 0 Refills Prov: LAWRENCE HOBSON NP 04/08/25 Additional Instructions: FOLLOW-UP WITH PRIMARY CARE PROVIDER IN 1 TO 2 DAYS. TAKE MEDICATIONS DIRECTED HERE IN THE EMERGENCY ROOM. OKAY TO CONTINUE HOME MEDICATIONS UNLESS OTHERWISE DISCUSSED DURING YOUR VISIT IN THE EMERGENCY ROOM TODAY. RETURN TO YOUR NEAREST EMERGENCY ROOM IF SYMPTOMS WORSEN OR IF THERE IS NO IMPROVEMENT. CALL 911 IF YOU NEED IMMEDIATE ASSISTANCE. TAKE TYLENOL OR MOTRIN [id number] NEEDED AND IF NO CONTRAINDICATIONS ARE PRESENT. INCREASE ORAL HYDRATION. A WOUND CULTURE OR URINE CULTURE WAS ORDERED HERE IN THE EMERGENCY ROOM DEPARTMENT PLEASE FOLLOW-UP WITH PRIMARY CARE PROVIDER AND ADVISE THEM TO GET REPEAT PORTS FROM OUR FACILITY. IF YOU HAD ANY KJ WRAP/SPLINTS THAT WERE APPLIED HERE, PLEASE DO NOT REMOVE THEM UNTIL YOU SEE YOUR PRIMARY CARE OR SPECIALTY. TAKE ANTIBIOTICS DIRECTED UNTIL GONE. APPLY BACTROBAN WITH DRESSING 3 TIMES A DAY FOR FIVE DAYS. SUTURES OUT IN 10 DAYS. KEEP LACERATION REPAIR CLEAN AND DRY. Referrals: LA RUIZ MD (PCP) Time of Disposition: 13:28 I have reviewed the case, and I agree with, Diagnosis and Plan I performed a substantive portion of the visit. I have reviewed and personally made and approve the management plan that is documented in the notes by myself with JESSICA/resident. I acknowledged full responsibility for the patient's management plan. LAWRENCE HOBSON NP Apr 08, 2025 11:25 ANGEL DODD DO Apr 08, 2025 14:34
[2025-04-08] MEDS ORDERED: LIDOCAINE HCL 1% 20 ML VIAL INJ ONE (11:30)
--- NOTE | 2025-04-08 12:38 | NUR ---
PT MOVED FROM LOBBY AND PLACED IN FAST TRACK
[2025-04-08] MEDS: NEOMY SULF/BACITRA/POLYMYXIN B 1 EACH PACKET TP ONE (13:28)
[2025-04-08] MEDS ORDERED: CEPH500T PO (13:29)
[2025-04-08] MEDS ORDERED: MUPI22O TP (13:29)
[2025-04-08 13:31] VITALS: BP 141/52; PULSE 66; RESP 16; TEMP 98.5; O2SAT 100
--- NOTE | 2025-04-08 13:54 | HMCIMG ---
EXAM: CR right Hand, 3 View. CLINICAL HISTORY: LACERATION WITH FOREIGN BODY TO WEB OF RIGHT 3RD AND 4TH FINGER. R/O FB COMPARISON: None provided. FINDINGS: BONES: No acute osseous pathology evident. JOINTS: No evidence of dislocation. The joint spaces are normal. SOFT TISSUES: The soft tissues appear within normal limits. No radiopaque foreign body is seen. IMPRESSION: No acute pathology evident. No acute fracture or dislocation. /[place]
== END 2025-04-08 13:41 | disposition home or self-care (01) ==
LOC: EDH 11:13
DX: S61.411A Laceration without foreign body of right hand, initial encounter (principal); E11.9 Type 2 diabetes mellitus without complications; E78.00 Pure hypercholesterolemia, unspecified; F03.90 Unspecified dementia, unspecified severity, without behavioral disturbance, psychotic disturbance, mood disturbance, and anxiety; I10 Essential (primary) hypertension; Z79.82 Long term (current) use of aspirin; Z79.84 Long term (current) use of oral hypoglycemic drugs; Z79.899 Other long term (current) drug therapy; Z95.1 Presence of aortocoronary bypass graft; X50.9XXA Other and unspecified overexertion or strenuous movements or postures, initial encounter; Y93.89 Activity, other specified; Y92.89 Other specified places as the place of occurrence of the external cause; Y99.8 Other external cause status
CPT/HCPCS: 12001; 12002; 73130; 90471; 90714; 99284